=== PATIENT | female | born 1990 | race Two or more races ===

== ENCOUNTER 2020-09-25 09:31 | Emergency (ER) | payer SELFPAY ==
[~2020-09-25] VITALS: Ht 154.9 cm; Wt 49.9 kg
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
--- NOTE | 2020-09-25 09:41 | NUR ---
AT BEDSIDE FOR EVAL.
[2020-09-25] MEDS: IBUPROFEN 600 MG TABLET PO ONE ×2 (09:57→10:15)
[2020-09-25] MEDS ORDERED: IBUPROFEN 600 MG TABLET ONE (09:57)
--- NOTE | 2020-09-25 10:14 | NUR ---
PT IS BACK FROM THE CT SCAN.
[2020-09-25] MEDS ORDERED: ACETAMINOPHEN ES 500 MG TABLET ONE (10:17)
[2020-09-25] MEDS ORDERED: ACETAMINOPHEN ES 500 MG TABLET PO ONE (10:30)
--- NOTE | 2020-09-25 10:45 | NUR ---
Patient discharged to home in stable condition. Written and verbal after care instructions given. Patient verbalizes understanding of instruction.
[2020-09-25 10:46] VITALS: BP 118/68
== END 2020-09-25 10:49 | disposition home or self-care (01) ==
LOC: ER 09:34
DX: S00.83XA Contusion of other part of head, initial encounter (principal); R51.9 Headache, unspecified; M79.605 Pain in left leg; M79.641 Pain in right hand; M25.552 Pain in left hip; V49.49XA Driver injured in collision with other motor vehicles in traffic accident, initial encounter; Y93.89 Activity, other specified; Y92.488 Other paved roadways as the place of occurrence of the external cause; Y99.8 Other external cause status
CPT/HCPCS: 70450-TC; 73130-TC; 73502; 73564-TC